=== PATIENT | female | born 1990 | race Hispanic/Latino ===

== ENCOUNTER 2018-09-08 18:49 | Day surgery (SDC) | payer OTHER ==
[2018-09-08 19:13] VITALS: BMI 31.0
[2018-09-08 20:48] LABS: FFN Internal QC Analyzer PASS (PASS); FFN Internal QC Cassette PASS (PASS); Fetal Fibronectin Negative (Negative)
--- NOTE | 2018-09-08 21:56 | PRG ---
DATE OF SERVICE: 09/08/2018 PRIMARY OB: Elio Johnson MD CHIEF COMPLAINT: Pelvic pain. HISTORY OF PRESENT ILLNESS: The patient is a 28-year-old, G3, P2, female with an intrauterine at 32 weeks and 6 days, who presents to Labor and Delivery with complaints of abdominal and pelvic pain that she reports began after spending the day a [place] outdoor [place]. The patient reports the pain is sharp that the pain is worse with movement and activity with getting out of bed, rolling over in the bed, lifting her leg, getting out of car. She also reports that she has been feeling contraction pain, where her belly gets hard 2 to 3 times an hour. She denies any recent illness, fever, fall, headache, chest pain, shortness of breath, nausea, vomiting, or diarrhea. She does report constipation that has gotten relatively worse in this recent part of her . She denies any new rashes, hip problems, knee problems, or muscle weakness. Denies vaginal bleeding or leakage of fluid. She reports the normal discharge. Denies any urinary urgency. PAST MEDICAL HISTORY: Negative. PAST SURGICAL HISTORY: Negative. ALLERGIES: NO KNOWN DRUG ALLERGIES. MEDICATIONS: vitamins. SOCIAL HISTORY: Denies drug, alcohol, or tobacco use. OB LABS: Unavailable at the time of dictation. REVIEW OF SYSTEMS: Per HPI. PHYSICAL EXAMINATION: VITAL SIGNS: Blood pressure 110/60, heart rate of 81, respiratory rate 18, saturating 99% on room air, and temperature 98.0. GENERAL: She appears to be in no acute distress. She is alert, oriented, cooperative, and pleasant to interact with. HEENT: Head, normocephalic and atraumatic. LUNGS: Clear to auscultation bilaterally. HEART: Regular rate and rhythm. ABDOMEN: Gravid. She has some tenderness to palpation with deviation of the uterus to the patient's right with pain on the left more than the right. No suprapubic tenderness. She has no vertebral tenderness or paravertebral tenderness, no CVA tenderness, no SI joint tenderness, all to palpation. EXTREMITIES: Nontender and nonedematous. : Exam has been per nursing staff, it is closed, thick, and high. LABORATORY DATA: NST performed for pelvic and abdominal pain, baseline is in the 120s with moderate long-term variability, positive 15 x 15 accelerations, no deceleration. The tocometer did not show any contractions over 48-minute. fibronectin is negative. ASSESSMENT AND PLAN: The patient is a 28-year-old, G3, P2 female with an intrauterine at 32 weeks and 6 days, experiencing the musculoskeletal pains of . The patient has been given reassurance. She has declined pain medication. We have communicated the results to her and has been discharged to home with reassurance and instructions to follow up with her primary OB as scheduled on . Fetus has a category I tracing and reactive NST. Job ID: [id number]
== END 2018-09-08 21:00 | disposition home health service (06) ==
LOC: L&D/OP 18:49
PROVIDERS: ATTEND Obstetrics & Gynecology
DX: O26.893 Other specified pregnancy related conditions, third trimester (principal); R10.2 Pelvic and perineal pain; O99.613 Diseases of the digestive system complicating pregnancy, third trimester; K59.00 Constipation, unspecified; Z3A.32 32 weeks gestation of pregnancy; Z79.899 Other long term (current) drug therapy
CPT/HCPCS: 82731; 99283

== ENCOUNTER 2018-10-02 16:25 | Day surgery (SDC) | payer OTHER ==
[2018-10-02 17:12] VITALS: BMI 31.0
--- NOTE | 2018-10-02 18:43 | PRG ---
DATE OF SERVICE: 10/02/2018 PRIMARY OB: Dr. Elio Johnson. CHIEF COMPLAINT: Abdominal pain. HISTORY OF PRESENT ILLNESS: The patient is a 28-year-old, G3, P2 female with an intrauterine at 36 weeks and 2 days, who is presenting to Labor and Delivery with fundal and lower pelvic pain since waking up this morning. The patient is unable to give me a time frame, but says that they are worse when she is up and moving and standing and get better when she is lying down and resting. The patient reports that she was seen yesterday by her primary OB, Dr. Johnson and stated that she was 2 cm dilated. The patient denies any recent fevers, fall, headache, chest pain, shortness of breath, nausea, vomiting, diarrhea, constipation, new rashes, hip problems, knee problems, or muscle weakness. She does have some lower back pains that she attributes to the . She reports that she has recently was diagnosed with a yeast infection and has been on a prescription strength vaginal antifungal cream. The patient denies any change in her discharge and denies any urinary urgency or frequency. PAST MEDICAL HISTORY: Negative. PAST SURGICAL HISTORY: Negative. ALLERGIES: NO KNOWN DRUG ALLERGIES. MEDICATIONS: vitamins and antifungal prescription cream. SOCIAL HISTORY: Denies drug, alcohol, or tobacco use. OB LABS: Unavailable at time of dictation. REVIEW OF SYSTEMS: Per HPI. PHYSICAL EXAMINATION: VITAL SIGNS: Blood pressure 108/67, heart rate of 86, respiratory rate of 20, saturating 100% on room air, and temperature 98.8. GENERAL: She appears to be in no acute distress. She is alert, oriented, cooperative, pleasant to interact with. HEAD: Normocephalic and atraumatic. LUNGS: Clear to auscultation bilaterally. HEART: Regular rate and rhythm. ABDOMEN: Gravid and soft. She has some mild fundal tenderness to palpation and some lower pelvic tenderness with deviation of uterus to the left and right, that is reproducing her pain. EXTREMITIES: Nontender and nonedematous. : Per nursing staff is 1.5, 15, -2 station. heart tracing performed for abdominal pain and noted to be in the 120s with moderate long-term variability, positive 15 x 15 accelerations, no decelerations. She has some irritability seen on the monitor, but no regular contractions. ASSESSMENT AND PLAN: The patient is a 28-year-old female, who is here with musculoskeletal pain of . She has been given labor precautions and reassurance and is being discharged to home with an appointment to follow up with Dr. Johnson next Friday. Fetus has a reactive NST and overall category 1 tracing. Job ID: [id number]
== END 2018-10-02 18:18 | disposition home health service (06) ==
LOC: L&D/OP 16:25
PROVIDERS: ATTEND Obstetrics & Gynecology
DX: O99.89 Other specified diseases and conditions complicating pregnancy, childbirth and the puerperium (principal); R10.2 Pelvic and perineal pain; O98.813 Other maternal infectious and parasitic diseases complicating pregnancy, third trimester; Z3A.36 36 weeks gestation of pregnancy
CPT/HCPCS: 99282